=== PATIENT | female | born 1960 | race Caucasian/White ===

== ENCOUNTER 2020-02-27 10:15 | Emergency (ER) | payer BC, OTHER ==
[2020-02-27 16:26] LABS: SARS-CoV-2 MS2 Positive; SARS-CoV-2 N Gene Negative; SARS-CoV-2 S Gene Negative; SARS-CoV-2 by NAA Not Detected (NotDetected); SARS-CoV-2 orf1ab Negative
== END 2020-02-27 10:39 | disposition home or self-care (01) ==
LOC: ERS 10:15
DX: Z20.828 Contact with and (suspected) exposure to other viral communicable diseases (principal)
CPT/HCPCS: 87635; 99283; U0003